=== PATIENT | male | born 1960 | race African-American/Black ===

== ENCOUNTER 2019-02-21 15:33 | Emergency (ER) | payer OTHER | END 2019-02-21 16:45 | disposition home or self-care (01) | LOC: FTE 15:33 | DX: I11.0 Hypertensive heart disease with heart failure (principal); I50.9 Heart failure, unspecified | CPT/HCPCS: 99281; Z7502 ==

== ENCOUNTER 2019-05-01 18:06 | Emergency (ER) | payer OTHER ==
[2019-05-01] MEDS: NICARDipine HCL 30 MG CAPSULE PO (21:48)
== END 2019-05-01 22:53 | disposition home or self-care (01) ==
LOC: E/R 18:06
DX: I11.0 Hypertensive heart disease with heart failure (principal); R53.1 Weakness; I50.9 Heart failure, unspecified; Z79.02 Long term (current) use of antithrombotics/antiplatelets; Z76.0 Encounter for issue of repeat prescription
CPT/HCPCS: 99283; Z7502